=== PATIENT | female | born 1955 | race Caucasian/White ===

== ENCOUNTER → 2019-09-04 10:25 | Outpatient (CLI) | payer OTHER, SELFPAY ==
[2019-09-07 13:04] LABS: HPV Reflexed? NOT INDICATED
== END ==
PROVIDERS: Family Provider Family Medicine; Visit Provider Obstetrics & Gynecology
DX: Z12.4 Encounter for screening for malignant neoplasm of cervix (principal)
CPT/HCPCS: 88175; G0145